=== PATIENT | male | born 1955 | race Caucasian/White ===

== ENCOUNTER → 2024-03-16 06:32 | Outpatient (REF) | payer MEDICARE, SELFPAY | LOC: MRI 3T 06:32 | PROVIDERS: ATTENDING PHYSICIAN Physician Assistant Surgical | DX: M89.511 Osteolysis, right shoulder (principal) | CPT/HCPCS: 73221 ==

== ENCOUNTER → 2025-06-07 09:49 | Outpatient (REF) | payer MEDICARE, SELFPAY ==
[2025-06-07 10:09] LABS: Hematocrit 42.4 % (39.0-52.0); Hemoglobin 15.1 g/dL (13.0-18.0); Mean Corp Hgb Conc. 35.6 g/dL (33.0-37.0); Mean Corpuscular Volume 86.9 fL (80.0-94.0); Nucleated Red Blood Cells % 0 % (-); Platelet Count 153 10^3/uL (130-400); Red Cell Dist. Width 13.2 % (11.5-14.5)
[2025-06-07 10:39] LABS: Blood Urea Nitrogen 18 mg/dl (9-20); Calcium 9.3 mg/dl (8.4-10.2); Carbon Dioxide 27 mmol/L (22-30); Chloride 106 mmol/L (98-107); Glucose 80 mg/dl (70-99); Potassium 4.9 mmol/L (3.5-5.1); Sodium 140 mmol/L (135-145); eGFR > 60.00
== END ==
LOC: REG 09:49
PROVIDERS: ATTENDING PHYSICIAN Orthopaedic Surgery Hand Surgery; FAMILY PHYSICIAN Family Medicine
DX: Z01.818 Encounter for other preprocedural examination (principal)
CPT/HCPCS: 36415; 80048; 85025; 93005